=== PATIENT | female | born 1975 | race Asian ===

== ENCOUNTER 2017-01-31 10:08 | Outpatient (CLI) | payer OTHER ==
[~2017-01-31 10:08] MED LIST: AMLO5TAB PO; LISINOP/HCTZ1 TA2 PO
[2017-01-31 10:39] LABS: PLATELET COUNT 481 K/uL (152-353)
[2017-01-31 10:58] LABS: POTASSIUM 3.4 mmol/L (3.6-5.2); SODIUM 139 mmol/L (136-145)
== END 2017-01-31 11:30 | disposition home or self-care (01) ==
LOC: LABW 10:08
PROVIDERS: Family Medicine
DX: R10.11 Right upper quadrant pain (principal)
CPT/HCPCS: 36415; 80053; 81000; 82150; 83690; 85027; 86318

== ENCOUNTER 2017-02-02 07:20 | Emergency (ER) | payer OTHER ==
[~2017-02-02] VITALS: Ht 170.2 cm; Wt 104.3 kg
[2017-02-02 09:13] LABS: PLATELET COUNT 458 K/uL (152-353)
[2017-02-02 09:21] LABS: POTASSIUM 3.9 mmol/L (3.6-5.2); SODIUM 138 mmol/L (136-145)
[2017-02-02 12:50] VITALS: BP 136/74; TEMP 98.8
== END 2017-02-02 12:50 | disposition home or self-care (01) ==
LOC: ED 07:20
PROVIDERS: Emergency Medicine
DX: K29.70 Gastritis, unspecified, without bleeding (principal); R10.9 Unspecified abdominal pain
CPT/HCPCS: 36415; 80053; 82550; 84484; 85027; 86318; 93005; 96374; 96375; 99284; J1200; J2270; J2405

== ENCOUNTER 2017-02-09 11:51 | Outpatient (CLI) | payer OTHER | END 2017-02-09 19:18 | disposition home or self-care (01) | LOC: NM 11:51 | DX: R10.9 Unspecified abdominal pain (principal) | CPT/HCPCS: A9537 ==

== ENCOUNTER 2017-02-22 12:46 | Outpatient (CLI) | payer OTHER | END 2017-02-22 19:06 | disposition home or self-care (01) | LOC: MAMMO 12:46 | DX: R92.8 Other abnormal and inconclusive findings on diagnostic imaging of breast (principal) | CPT/HCPCS: G0206-TC ==

== ENCOUNTER 2017-03-29 13:40 | Day surgery (SDC) | payer OTHER ==
[2017-03-22 11:53] LABS: PLATELET COUNT 453 K/uL (152-353)
[2017-03-22 12:03] LABS: PARTIAL THROMBOPLASTIN TIME 23.9 SECONDS (24.5-33.6)
[2017-03-22 12:11] LABS: POTASSIUM 3.8 mmol/L (3.6-5.2); SODIUM 140 mmol/L (136-145)
[~2017-03-29] VITALS: Ht 33 cm; Wt 9.1 kg
== END 2017-03-29 18:25 | disposition home or self-care (01) ==
LOC: OR 13:40
PROVIDERS: Student in an Organized Health Care Education/Training Program
PROC: 0FT44ZZ Resection of Gallbladder, Percutaneous Endoscopic Approach (ICD-10-PCS; principal; 2017-03-29)
DX: K80.10 Calculus of gallbladder with chronic cholecystitis without obstruction (principal)
CPT/HCPCS: 36415; 80053; 81025; 85027; 85610; 85730; J0132; J0690; J1100; J1170; J1200; J3010; S0028

== ENCOUNTER 2017-06-23 11:06 | Outpatient (CLI) | payer OTHER ==
[2017-06-23 11:44] LABS: PLATELET COUNT 368 K/uL (152-353)
[2017-06-23 12:16] LABS: POTASSIUM 3.8 mmol/L (3.6-5.2); SODIUM 138 mmol/L (136-145)
== END 2017-06-23 12:35 | disposition home or self-care (01) ==
LOC: LABW 11:06
PROVIDERS: Family Medicine
DX: R60.0 Localized edema (principal); R73.09 Other abnormal glucose
CPT/HCPCS: 36415; 80053; 83036; 84443; 85027

== ENCOUNTER 2017-07-19 07:53 | Outpatient (CLI) | payer OTHER | END 2017-07-19 18:55 | disposition home or self-care (01) | LOC: RESP 07:53 | DX: R60.0 Localized edema (principal) | CPT/HCPCS: 93306 ==

== ENCOUNTER 2018-01-24 13:03 | Outpatient (CLI) | payer OTHER | END 2018-01-24 22:01 | disposition home or self-care (01) | LOC: MAMMO 13:03 | DX: N63.22 Unspecified lump in the left breast, upper inner quadrant (principal) ==

== ENCOUNTER 2018-09-14 09:05 | Outpatient (CLI) | payer OTHER ==
[2018-09-14 10:00] LABS: PLATELET COUNT 467 K/uL (152-353)
[2018-09-14 10:20] LABS: POTASSIUM 4.1 mmol/L (3.6-5.2)
== END 2018-09-14 23:21 | disposition home or self-care (01) ==
LOC: LABW 09:05
PROVIDERS: Family Medicine
DX: I10 Essential (primary) hypertension (principal); E78.5 Hyperlipidemia, unspecified; R53.83 Other fatigue; E53.9 Vitamin B deficiency, unspecified; E55.9 Vitamin D deficiency, unspecified; M25.50 Pain in unspecified joint; E11.65 Type 2 diabetes mellitus with hyperglycemia
CPT/HCPCS: 36415; 80053; 80061; 81000; 82306; 82607; 83036; 84443; 84550; 85027; 85651; 86039; 86140; 86431

== ENCOUNTER 2019-05-29 08:17 | Outpatient (CLI) | payer OTHER ==
[2019-05-29 08:46] LABS: PLATELET COUNT 479 K/uL (152-353)
[2019-05-29 15:17] LABS: POTASSIUM 3.8 mmol/L (3.6-5.2)
== END 2019-05-29 20:08 | disposition home or self-care (01) ==
LOC: LABW 08:17
PROVIDERS: Family Medicine
DX: R53.83 Other fatigue (principal); E78.5 Hyperlipidemia, unspecified; E55.9 Vitamin D deficiency, unspecified; E11.65 Type 2 diabetes mellitus with hyperglycemia
CPT/HCPCS: 36415; 80053; 80061; 81000; 82306; 82607; 83036; 84443; 85027

== ENCOUNTER 2019-11-06 10:45 | Outpatient (CLI) | payer OTHER | END 2019-11-06 19:24 | disposition home or self-care (01) | LOC: LABW 10:45 | DX: E11.65 Type 2 diabetes mellitus with hyperglycemia (principal) | CPT/HCPCS: 36415; 81000; 83036 ==

== ENCOUNTER 2020-06-05 11:56 | Outpatient (CLI) | payer OTHER ==
[2020-06-05 15:25] LABS: PLATELET COUNT 463 K/uL (152-353)
[2020-06-05 16:31] LABS: POTASSIUM 4.1 mmol/L (3.6-5.2)
== END 2020-06-05 23:27 | disposition home or self-care (01) ==
LOC: CT 11:56
PROVIDERS: Nurse Practitioner Family
DX: G44.52 New daily persistent headache (NDPH) (principal); I10 Essential (primary) hypertension; E78.2 Mixed hyperlipidemia; R53.83 Other fatigue; E11.65 Type 2 diabetes mellitus with hyperglycemia
CPT/HCPCS: 36415; 80053; 80061; 82306; 82607; 83036; 83520; 85027; 85651; 86140

== ENCOUNTER 2020-12-15 11:22 | Observation (INO) | payer OTHER ==
[~2020-12-15] VITALS: Ht 175.3 cm; Wt 105.8 kg
--- NOTE | 2020-12-15 12:30 | NUR ---
PATIENT BROUGHT VIA WHEELCHAIR TO ROOM 1119. PATIENT NOTED ANXIOUS AND STATING HER HEART FELT LIKE IT WAS BEATHING FAST. STAT EKG ORDERED AND RESPIRATORY AT THE BEDSIDE DOING EKG.
[2020-12-15 12:45] VITALS: BP 208/103; TEMP 99; Ht 175.3 cm; Wt 105.8 kg
[2020-12-15 14:08] LABS: PLATELET COUNT 455 K/uL (152-353)
[2020-12-15] MEDS ORDERED: TRIBENZO4 PO (14:08)
[2020-12-15] MEDS ORDERED: SIMV20TA2 PO (14:08)
[2020-12-15] MEDS ORDERED: CARV6.25 PO (14:09)
[2020-12-15] MEDS ORDERED: METF500T PO (14:10)
[2020-12-15 14:21] LABS: PARTIAL THROMBOPLASTIN TIME 25.8 SECONDS (24.5-33.6)
[2020-12-15 14:23] LABS: POTASSIUM 3.8 mmol/L (3.6-5.2); SODIUM 143 mmol/L (136-145)
[2020-12-15 16:00] VITALS: BP 175/97; TEMP 98.5
[2020-12-15 20:00] VITALS: BP 147/85; TEMP 98.2
--- NOTE | 2020-12-15 20:10 | NUR ---
NITRO PATCH PLACED ON PT AT THIS TIME. PT DENIES ANY PAIN OR DISCOMFORT AT THIS TIME. PT IS IN A HIGH-FOWLERS POSITION, WITH SIDE RAILS UP TIMES UP TIMES TWO WITH BED IN LOWEST POSITION. PT REACTIVE TO VERBAL STIMULI. CALL LIGHT WITHIN REACH.
--- NOTE | 2020-12-15 22:00 | NUR ---
CHRISSY NOTIFIED OF PT'S CARDIAC ENZYMES AND EKG RESULTS AT THIS TIME.
[2020-12-15 23:50] VITALS: BP 119/73; TEMP 98
--- NOTE | 2020-12-16 01:01 | NUR ---
NITRO PATCH PLACED ON PT AT THIS TIME. PT IS RESTING QUIETLY WITH SIDE RAILS UP TIMES TWO AND NAD NOTED AT THIS TIME. PT IN LOW-FOWLERS POSITION. PT DENIES ANY PAIN OR DISCOMFORT AT THIS TIME.
[2020-12-16 04:22] VITALS: BP 133/63; TEMP 98.1
[2020-12-16 08:00] VITALS: BP 159/90; TEMP 98.1
[2020-12-16 12:00] VITALS: BP 138/79; TEMP 98.3
[2020-12-16 16:00] VITALS: BP 155/86; TEMP 97.9
--- NOTE | 2020-12-16 20:18 | NUR ---
PT WAS EDUCATED ON DISCHARGE INSTRUCTIONS AND PRESCRIPTION SCRIPT GIVEN, PT VERBALIZED UNDERSTANDING. IV WAS REMOVED WITH CATHETER INTACT. PT WALKED TO DAUGHTER'S VEHICLE WITH PERSONAL BELONGINGS. NAD WAS NOTED DURING DISCHARGE.
== END 2020-12-16 20:10 | disposition home or self-care (01) ==
LOC: MED/SURG 11:22
PROVIDERS: ADMIT Family Medicine; ATTEND Family Medicine
DX: R07.9 Chest pain, unspecified (principal); R00.2 Palpitations; R00.0 Tachycardia, unspecified; I10 Essential (primary) hypertension
CPT/HCPCS: 36415; 80053; 80061; 82550; 82948; 84436; 84439; 84443; 84479; 84480; 84481; 84484; 85027; 85610; 85730; 87635; 93005; 94760; 96372; 99220; G0378; G0379; J1650; U0003

== ENCOUNTER 2021-01-07 08:00 | Outpatient (CLI) | payer OTHER ==
[~2021-01-07 08:00] MED LIST changes: +CARV6.25 PO; +METF500T PO; +SIMV20TA2 PO; +TRIBENZO4 PO
== END 2021-01-07 19:19 | disposition home or self-care (01) ==
LOC: NM 08:00
PROVIDERS: ATTEND Family Medicine
DX: R07.89 Other chest pain (principal)
CPT/HCPCS: A9500

== ENCOUNTER 2022-04-07 13:27 | Outpatient (CLI) | payer OTHER ==
[~2022-04-07] VITALS: Ht 170.2 cm; Wt 111.1 kg
[2022-04-07 13:26] VITALS: BP 139/71; TEMP 98.8
--- NOTE | 2022-04-07 14:00 | NUR ---
1326 PT AMBULATED TO ROOM 1128 FOR OP INFUSION. VS OBTAINED 24G PIV TO RAC X2 ATTEMPTS
--- NOTE | 2022-04-07 14:12 | NUR ---
1407 BEBTELOVIMAB IVP OVER 30 SECONDS FOLLOWED BY 10ML NS FLUSH GIVEN AT THIS TIME. PT TOLERATED WITH NO COMPLICATIONS WILL MONITOR VS PER ORDER. 1413 PT DENIES ANY COMPLAINTS AT THIS TIME. NO ADVERSE REACTION SUSPECTED.
[2022-04-07 14:25] VITALS: BP 110/70; TEMP 98.7
[2022-04-07 14:45] VITALS: BP 129/70; TEMP 98.2
--- NOTE | 2022-04-07 14:46 | NUR ---
PT IN RECLINER WATCHING TV SHE STATES SHE FEELS FINE. NO CHANGE IN HOW SHE FELT ON ARRIVAL.
[2022-04-07 15:10] VITALS: BP 127/68; TEMP 98.5
--- NOTE | 2022-04-07 15:23 | NUR ---
1510 PT TOLERATED INFUSION WITH NO ADVERSE REACTIONS. NO COMPLAINTS VOICED AT THIS TIME. IV D/C INTACT. PT AMBULATED OUT OF FACILITY TO POV IN NO DISTRESS.
== END 2022-04-07 22:27 | disposition home or self-care (01) ==
LOC: INF 13:27
PROVIDERS: ATTEND Family Medicine
DX: Z23 Encounter for immunization (principal); U07.1 COVID-19
CPT/HCPCS: 96374; Q0222

== ENCOUNTER 2022-10-17 13:04 | Outpatient (CLI) | payer OTHER | END 2022-10-17 20:23 | disposition home or self-care (01) | LOC: RAD 13:04 | PROVIDERS: ATTEND Nurse Practitioner Family | DX: J20.9 Acute bronchitis, unspecified (principal) ==

== ENCOUNTER 2022-11-30 08:09 | Outpatient (CLI) | payer OTHER ==
[2022-11-30 08:35] LABS: PLATELET COUNT 409 K/uL (152-353)
[2022-11-30 09:01] LABS: POTASSIUM 4.1 mmol/L (3.6-5.2)
== END 2022-11-30 22:41 | disposition home or self-care (01) ==
LOC: LABW 08:09
PROVIDERS: ATTEND Nurse Practitioner Family
DX: I10 Essential (primary) hypertension (principal); E78.2 Mixed hyperlipidemia; R53.83 Other fatigue; E55.9 Vitamin D deficiency, unspecified; E11.65 Type 2 diabetes mellitus with hyperglycemia
CPT/HCPCS: 36415; 80053; 80061; 82306; 82607; 83036; 84443; 85027

== ENCOUNTER 2022-12-16 08:32 | Outpatient (CLI) | payer OTHER | END 2022-12-16 19:40 | disposition home or self-care (01) | LOC: MAMMO 08:32 | PROVIDERS: ATTEND Nurse Practitioner Family | DX: Z13.820 Encounter for screening for osteoporosis (principal); Z12.31 Encounter for screening mammogram for malignant neoplasm of breast ==

== ENCOUNTER 2022-12-26 12:11 | Outpatient (CLI) | payer OTHER | END 2022-12-26 21:21 | disposition home or self-care (01) | LOC: MAMMO 12:11 | PROVIDERS: ATTEND Obstetrics & Gynecology | DX: R92.2 Inconclusive mammogram (principal) ==

== ENCOUNTER 2023-02-13 08:45 | Outpatient (CLI) | payer OTHER ==
[2023-02-13 09:23] LABS: PLATELET COUNT 337 K/uL (152-353)
[2023-02-13 09:46] LABS: POTASSIUM 3.4 mmol/L (3.6-5.2)
== END 2023-02-13 19:20 | disposition home or self-care (01) ==
LOC: LABW 08:45
PROVIDERS: ATTEND Surgery
DX: Z01.810 Encounter for preprocedural cardiovascular examination (principal); Z01.811 Encounter for preprocedural respiratory examination; Z01.812 Encounter for preprocedural laboratory examination; Z01.818 Encounter for other preprocedural examination; Z79.01 Long term (current) use of anticoagulants
CPT/HCPCS: 36415; 80053; 85027